=== PATIENT | male | born 1945 | race Caucasian/White ===

== ENCOUNTER 2016-07-13 10:20 | Emergency (ER) | payer MEDICARE, OTHER ==
[2016-07-13] MEDS ORDERED: SODIUM CHLORIDE 0.9% 500 ML IV ONE (11:52)
[2016-07-13] MEDS ORDERED: PROCAINAMIDE 100 MG/1 ML 10 ML MDV IV ONE (11:52)
[2016-07-13] MEDS ORDERED: METOPROLOL 5 MG/5 ML VIAL IVP STA (11:53)
[2016-07-13] MEDS ORDERED: SODIUM CHLORIDE 0.9% 1,000 ML IV ONE (11:58)
[2016-07-13] MEDS ORDERED: METOPROLOL 5 MG/5 ML VIAL IVP ONE (11:58)
[2016-07-13] MEDS ORDERED: PROCAINAMIDE 100 MG/1 ML 10 ML MDV IV STA (12:31)
[2016-07-13] MEDS ORDERED: PROCAINAMIDE 1,000 MG in SODIUM CHLORIDE 0.9% 240 ML IV STA (12:33)
[2016-07-13] MEDS ORDERED: PROCAINAMIDE 1,000 MG in SODIUM CHLORIDE 0.9% 240 ML IV ONE (13:00)
== END 2016-07-13 14:03 | disposition home or self-care (01) ==
DX: I48.0 Paroxysmal atrial fibrillation (principal); R06.09 Other forms of dyspnea; I10 Essential (primary) hypertension; Z79.82 Long term (current) use of aspirin